=== PATIENT | female | born 1990 | race Caucasian/White ===

== ENCOUNTER 2019-02-01 13:43 | Emergency (ER) | payer MEDICAID, MEDICARE ==
[~2019-02-01] VITALS: Ht 170.2 cm; Wt 79.5 kg
[~2019-02-01 13:43] MED LIST: DEXM25CP PO
[2019-02-01 13:48] VITALS: BP 123/86
[2019-02-01] MEDS ORDERED: ceFAZolin 1000mg inj IR ONE (16:05)
[2019-02-01] MEDS ORDERED: ceFAZolin 1,000 MG/D5W 50ML IVPB Premixed bag IV ONE (16:15)
[2019-02-01 16:39] LABS: BASOPHILS % (AUTO) 0.3 % (0-1); EOSINOPHILS # (AUTO) 0.3 X10'3 (0-0.9); EOSINOPHILS % (AUTO) 4.4 % (0-6); HEMATOCRIT 37.1 % (35.0-45.0); HEMOGLOBIN 12.7 g/dl (12.0-16.0); LYMPHOCYTES # (AUTO) 1.3 X10'3 (1.1-4.8); LYMPHOCYTES % (AUTO) 21.8 % (21-51); MEAN CORPUSCULAR HEMOGLOBIN 30.7 PG (27.0-31.0); MEAN CORPUSCULAR HGB CONC 34.1 g/dL (33.0-36.5); MEAN CORPUSCULAR VOLUME 89.9 FL (78-98); MEAN PLATELET VOLUME 8.2 FL (7.4-10.4); MONOCYTES # (AUTO) 0.6 X10'3 (0-0.9); MONOCYTES % (AUTO) 9.3 % (2-12); NEUTROPHILS # (AUTO) 3.9 X10'3 (1.8-7.7); NEUTROPHILS % (AUTO) 64.2 % (42-75); PLATELET COUNT 286 X10'3 (140-440); RED BLOOD COUNT 4.13 X10'6 (4.20-5.60); RED CELL DISTRIBUTION WIDTH 14.4 % (11.5-14.5); WHITE BLOOD COUNT 6.1 X10'3 (4.5-11.0)
[2019-02-01 17:04] LABS: ALANINE AMINOTRANSFERASE 131 U/L (12-78); ALBUMIN 3.3 G/DL (3.4-5.0); ALBUMIN/GLOBULIN RATIO 0.9 (1.1-1.5); ALKALINE PHOSPHATASE 55 IU/L (46-116); ANION GAP 7 (8-16); ASPARTATE AMINO TRANSFERASE 55 U/L (10-37); BILIRUBIN,TOTAL 0.3 MG/DL (0.1-1.0); BLOOD UREA NITROGEN 5 MG/DL (7-18); BUN/CREATININE RATIO 9.8 (6.6-38.0); CALCIUM 8.6 MG/DL (8.5-10.1); CHLORIDE 106 MMOL/L (99-107); CREATININE 0.51 MG/DL (0.40-0.90); GLUCOSE 100 MG/DL (70-104); POTASSIUM 3.5 MMOL/L (3.5-5.1); SODIUM 137 MMOL/L (135-145); TOTAL CARBON DIOXIDE 23.8 MMOL/L (24-32); TOTAL PROTEIN 6.9 G/DL (6.4-8.2); eGFR > 90 ML/MIN
--- NOTE | 2019-02-01 17:15 | NUR ---
dr barnes at bedside
[2019-02-01] MEDS ORDERED: CEPH-572 PO (17:38)
[2019-02-01] MEDS ORDERED: LIDOcaine 1% w/epiNEPHrine 1:200,000 30ml vial ONE (17:45)
[2019-02-03] MEDS ORDERED: PRED20TA PO (10:23)
== END 2019-02-01 18:32 | disposition home or self-care (01) ==
LOC: ER 13:43
DX: S69.82XA Other specified injuries of left wrist, hand and finger(s), initial encounter (principal); F15.90 Other stimulant use, unspecified, uncomplicated; Z79.899 Other long term (current) drug therapy; X58.XXXA Exposure to other specified factors, initial encounter; Y93.89 Activity, other specified; Y92.89 Other specified places as the place of occurrence of the external cause; Y99.9 Unspecified external cause status
CPT/HCPCS: 36415; 64450; 73130; 80053; 85025; 96365; 99284; J0690; 99285; J3490

== ENCOUNTER 2021-02-04 06:51 | Inpatient (IN) | payer MEDICAID, OTHER, SELFPAY ==
[2021-02-04] VITALS (21 sets, daily range): BP systolic 88–119; BP diastolic 55–76
[~2021-02-04] VITALS: Ht 170.2 cm; Wt 63.6 kg
[2021-02-04] MEDS ORDERED: TETanus/Pertussis (Acell)/Diphther VAC/PF (Tdap-Adult) 0.5ml syringe IMVAC ONE (07:00)
[2021-02-04] MEDS ORDERED: LIDOcaine 1% W/epiNEPHrine 1:200,000 10ml vial IJ ONE (07:00)
[2021-02-04] MEDS ORDERED: LORazepam 2 mg/ml vial IV ONE (07:10)
[2021-02-04] MEDS ORDERED: normal saline 1000ML IV soln IVB ONE (07:10)
[2021-02-04 07:50] LABS: BASOPHILS # (AUTO) 0.1 X10'3 (0-0.2); BASOPHILS % (AUTO) 0.4 % (0-1); EOSINOPHILS % (AUTO) 0 % (0-6); HEMATOCRIT 32.4 % (35.0-45.0); HEMOGLOBIN 10.6 g/dl (12.0-16.0); LYMPHOCYTES # (AUTO) 1.1 X10'3 (1.1-4.8); MEAN CORPUSCULAR HEMOGLOBIN 28.9 PG (27.0-31.0); MEAN CORPUSCULAR HGB CONC 32.6 g/dL (33.0-36.5); MEAN CORPUSCULAR VOLUME 88.7 FL (78-98); MEAN PLATELET VOLUME 8.5 FL (7.4-10.4); MONOCYTES # (AUTO) 1.1 X10'3 (0-0.9); MONOCYTES % (AUTO) 5.1 % (2-12); NEUTROPHILS # (AUTO) 19.2 X10'3 (1.8-7.7); NEUTROPHILS % (AUTO) 89.5 % (42-75); PLATELET COUNT 333 X10'3 (140-440); RED BLOOD COUNT 3.65 X10'6 (4.20-5.60); RED CELL DISTRIBUTION WIDTH 14.7 % (11.5-14.5); WHITE BLOOD COUNT 21.5 X10'3 (4.5-11.0)
[2021-02-04] MEDS ORDERED: ceFAZolin 1GM/D5W- ADD-VANTAGE 50 ML IV ONE (08:05)
[2021-02-04] MEDS ORDERED: ondansetron/PF 4mg/2ml inj IV PRN ×2 (08:35→12:05)
[2021-02-04] MEDS ORDERED: acetaminophen 325mg tablet PO PRN (08:35)
[2021-02-04] MEDS ORDERED: magnesium 4gm in 100ml NS 100 ML IV PRN (08:35)
[2021-02-04] MEDS ORDERED: ipratropium/albuterol 3ml nebule NEB PRN (08:35)
[2021-02-04] MEDS ORDERED: potassium Cl 20 mEq SR tablet PO PRN (08:35)
[2021-02-04] MEDS ORDERED: magnesium 2GM in 50ml NS 50 ML IV PRN (08:35)
[2021-02-04] MEDS ORDERED: morphine 2 MG/ML inj. syringe IV PRN ×2 (08:35→12:05)
[2021-02-04] MEDS ORDERED: potassium Cl 40MEQ/1/2NS 520ml 520 ML IV PRN ×2 (08:35)
[2021-02-04] MEDS ORDERED: mag hydrox/Alum hydrox/simeth 30ml oral suspension PO PRN (08:35)
[2021-02-04] MEDS ORDERED: albuterol 2.5 MG/3 ML nebule NEB PRN (08:35)
[2021-02-04] MEDS ORDERED: magnesium hydroxide 30ml (MOM) UD suspension PO PRN (08:35)
--- NOTE | 2021-02-04 08:43 | NUR ---
clothes were cut off and hospital gown on
[2021-02-04 09:22] LABS: ALANINE AMINOTRANSFERASE 118 U/L (12-78); ALBUMIN 3.3 G/DL (3.4-5.0); ALBUMIN/GLOBULIN RATIO 0.8 (1.1-1.5); ALKALINE PHOSPHATASE 76 IU/L (46-116); ANION GAP 9 (8-16); ASPARTATE AMINO TRANSFERASE 58 U/L (10-37); BILIRUBIN,TOTAL 0.3 MG/DL (0.1-1.0); BLOOD UREA NITROGEN 11 MG/DL (7-18); BUN/CREATININE RATIO 16.9 (6.6-38.0); CALCIUM 8.4 MG/DL (8.5-10.1); CHLORIDE 108 MMOL/L (99-107); CREATININE 0.65 MG/DL (0.40-0.90); GLUCOSE 95 MG/DL (70-104); POTASSIUM 3.6 MMOL/L (3.5-5.1); SODIUM 142 MMOL/L (135-145); TOTAL CARBON DIOXIDE 25.1 MMOL/L (24-32); TOTAL PROTEIN 7.3 G/DL (6.4-8.2); eGFR > 90 ML/MIN
[2021-02-04 09:23] LABS: CREATINE KINASE 378 U/L (26-192)
--- NOTE | 2021-02-04 09:41 | NUR ---
relieving RN for break, covid swab done, pt has been released from police custody, they would be informed when pt is going to be released from the hospital
[2021-02-04] MEDS: normal saline 1000ml 1,000 ML IV SCH ×2 (11:23→16:39)
[2021-02-04] MEDS: morphine 2 MG/ML inj. syringe IV PRN ×2 (11:44→21:00)
[2021-02-04] MEDS ORDERED: sevoflurane 250ml liquid IH ONE (12:02)
[2021-02-04] MEDS ORDERED: proCHLORperazine 10 MG/2 ml inj IV PRN (12:05)
[2021-02-04] MEDS ORDERED: meperidine/PF 25mg/ml syringe IV PRN ×3 (12:05)
[2021-02-04] MEDS ORDERED: morphine 4 MG/ML inj SYRINge IV PRN (12:05)
[2021-02-04] MEDS ORDERED: ringers solution, lacted 1,000 ML IV SCH (12:05)
[2021-02-04] MEDS ORDERED: cloNIDine hcl/PF 100mcg/ml inj ONE (12:07)
[2021-02-04] MEDS ORDERED: fentaNYL/PF 50MCG/1 ML 2ML syringe ONE (12:09)
[2021-02-04] MEDS ORDERED: ROPIVAcaine 0.5% (5mg/ml) 30ml vial ONE (12:42)
[2021-02-04] MEDS ORDERED: vancomycin 1,000mg inj ONE (12:42)
[2021-02-04] MEDS ORDERED: propofol inj 20 ML IV ONE (12:42)
[2021-02-04] MEDS ORDERED: ceFAZolin 1000mg inj ONE ×2 (13:45)
--- NOTE | 2021-02-04 14:02 | NUR ---
Received from OR via , accompanied by Anesthesiologist DR BANKS and report given by Anesthesiolgist. PTPRESENT WITH 18G LEFT FOREARM, DRESSING ON RIGHT ARM CLEAN DRY AND INTACT. VSS. Addendum: 02/04/21 at 1427 by Cata Henning RN, RN Amended: Links added.
--- NOTE | 2021-02-04 15:50 | NUR ---
PATIENT HAS MET ALL CRITERIA FOR TRANSFER TO THE SURGICAL/GENESIS/PCU/ORTHO/ICU FLOOR. VSS. DRESSINGS INTACT. BED LOW, CALL LIGHT PRESENT AND 2 RAILS UP. DARRYL FLORENTINO PRESENT TO ACCEPT CARE OF PATIENT AND REPORT HAS BEEN CALLED. ALL QUESTIONS ANSWERED TO ACCEPTING RN. Addendum: 02/04/21 at 1551 by Cata Abbott - DARRYL ANDREWS Amended: Links added.
[2021-02-04] MEDS: piperacillin/tazo 4.5gm/100ml 100 ML IV SCH (16:00)
[2021-02-04] MEDS: clindamycin 600mg/D5W 50ml 50 ML IV SCH ×2 (16:50→20:59)
--- NOTE | 2021-02-04 18:45 | NUR ---
Patient in room ORTHO 4015. I have received report from Elie ANDREWS and had the opportunity to ask questions and assume patient care.
[2021-02-04] MEDS: K and/or MAG REPLACEMENT MC SCH (20:00)
--- NOTE | 2021-02-04 20:48 | NUR ---
Pt scheduled dose of Zosyn at 1600 was not given by previous RN. Pt. has another antibiotic due now and is due to receive next dose at 0000.
[2021-02-04] MEDS: lactobacillus rhamnosus 10,000 MMU CELLS/CAPSULE PO SCH (20:59)
--- NOTE | 2021-02-04 23:10 | NUR ---
Pt is very restless, getting up out of bed without assistance and get tangled in her IV line and SCD's tubing. Pt was oriented to the call light several times and refuses to use it. Bed alarm is on and working. Nonskid socks on, will continue to frequently round on pt.
[2021-02-04] MEDS: LORazepam 2 mg/ml vial IV PRN (23:43)
[2021-02-05] MEDS: piperacillin/tazo 4.5gm/100ml 100 ML IV SCH (00:08)
[2021-02-05 00:13] VITALS: BP 97/64
[2021-02-05] MEDS: clindamycin 600mg/D5W 50ml 50 ML IV SCH ×4 (02:55→21:05)
[2021-02-05] MEDS: normal saline 1000ml 1,000 ML IV SCH ×2 (04:35→07:59)
[2021-02-05] MEDS: LORazepam 2 mg/ml vial IV PRN ×2 (05:02→13:28)
[2021-02-05 06:05] LABS: BASOPHILS % (AUTO) 0.3 % (0-1); EOSINOPHILS # (AUTO) 0.1 X10'3 (0-0.9); EOSINOPHILS % (AUTO) 1.3 % (0-6); HEMATOCRIT 30.3 % (35.0-45.0); HEMOGLOBIN 10.1 g/dl (12.0-16.0); LYMPHOCYTES # (AUTO) 1.5 X10'3 (1.1-4.8); LYMPHOCYTES % (AUTO) 18.3 % (21-51); MEAN CORPUSCULAR HEMOGLOBIN 29.7 PG (27.0-31.0); MEAN CORPUSCULAR HGB CONC 33.3 g/dL (33.0-36.5); MEAN CORPUSCULAR VOLUME 89.1 FL (78-98); MEAN PLATELET VOLUME 8.2 FL (7.4-10.4); MONOCYTES # (AUTO) 0.8 X10'3 (0-0.9); MONOCYTES % (AUTO) 10.3 % (2-12); NEUTROPHILS # (AUTO) 5.8 X10'3 (1.8-7.7); NEUTROPHILS % (AUTO) 69.8 % (42-75); PLATELET COUNT 291 X10'3 (140-440); WHITE BLOOD COUNT 8.2 X10'3 (4.5-11.0)
[2021-02-05 06:22] LABS: ALANINE AMINOTRANSFERASE 97 U/L (12-78); ALBUMIN 2.5 G/DL (3.4-5.0); ALBUMIN/GLOBULIN RATIO 0.7 (1.1-1.5); ALKALINE PHOSPHATASE 55 IU/L (46-116); AMYLASE 31 U/L (25-115); ANION GAP 7 (8-16); ASPARTATE AMINO TRANSFERASE 64 U/L (10-37); BILIRUBIN,TOTAL 0.5 MG/DL (0.1-1.0); BLOOD UREA NITROGEN 7 MG/DL (7-18); CALCIUM 8.1 MG/DL (8.5-10.1); CHLORIDE 106 MMOL/L (99-107); CREATININE 0.54 MG/DL (0.40-0.90); GLUCOSE 109 MG/DL (70-104); LIPASE < 50 U/L (73-393); MAGNESIUM 2.3 MG/DL (1.5-2.4); PHOSPHORUS 3.1 MG/DL (2.3-4.5); POTASSIUM 3.4 MMOL/L (3.5-5.1); SODIUM 138 MMOL/L (135-145); TOTAL CARBON DIOXIDE 25.4 MMOL/L (24-32); eGFR > 90 ML/MIN
--- NOTE | 2021-02-05 06:29 | NUR ---
Patient in room ORTHO 4015. I have received report from WHITNEY ANDREWS and had the opportunity to ask questions and assume patient care.
--- NOTE | 2021-02-05 06:38 | NUR ---
Problems reprioritized. Patient report given, questions answered & plan of care reviewed with Marizol ANDREWS.
[2021-02-05 07:00] VITALS: BP 106/61
[2021-02-05] MEDS: potassium Cl 20 mEq SR tablet PO PRN ×2 (07:52→17:38)
[2021-02-05] MEDS: lactobacillus rhamnosus 10,000 MMU CELLS/CAPSULE PO SCH ×2 (07:52→21:05)
[2021-02-05] MEDS: multivitamins, therapeutics tablet PO SCH (07:52)
[2021-02-05] MEDS: folic acid 1mg tablet PO SCH (07:52)
[2021-02-05] MEDS: nicotine 21mg patch - 24 hr TD SCH (07:53)
[2021-02-05] MEDS: thiamine 100mg tablet PO SCH (07:53)
[2021-02-05] MEDS: K and/or MAG REPLACEMENT MC SCH ×2 (08:00→20:58)
[2021-02-05 10:27] VITALS: BP 117/74
--- NOTE | 2021-02-05 13:37 | NUR ---
patient very impulsive with getting out of bed , food all through bed and floor. Linen changed patient medicated with Ativan. will continue to monitor.
[2021-02-05 15:00] VITALS: BP 110/71
--- NOTE | 2021-02-05 15:00 | NUR ---
NOT ABLE TO FULLY COMPLETE ADMISSIONS INTERVENTIONS, PT STILL SEDATED FROM SURGERY. OBTAIN INFORMATION BY EMERGENCY ROOM MEDICAL REPORT
[2021-02-05] MEDS: morphine 2 MG/ML inj. syringe IV PRN (17:41)
[2021-02-05 18:00] VITALS: BP 117/73
--- NOTE | 2021-02-05 18:26 | NUR ---
patient had BM today up to BR x1. morphine given at this time for pain 10/10 in right elbow. patient mostly sleeping , waking up to eat 100% of each meal.Report given to cecelia ANDREWS
--- NOTE | 2021-02-05 18:40 | NUR ---
Patient in room ORTHO 4015. I have received report from Marizol ANDREWS and had the opportunity to ask questions and assume patient care.
[2021-02-05 22:00] VITALS: BP 120/73
[2021-02-06] MEDS: potassium Cl 20 mEq SR tablet PO PRN (00:40)
[2021-02-06] MEDS: clindamycin 600mg/D5W 50ml 50 ML IV SCH ×2 (02:29→07:31)
[2021-02-06 06:00] VITALS: BP 128/77
[2021-02-06 06:05] LABS: BASOPHILS % (AUTO) 0.4 % (0-1); EOSINOPHILS # (AUTO) 0.2 X10'3 (0-0.9); EOSINOPHILS % (AUTO) 3.7 % (0-6); HEMATOCRIT 34.3 % (35.0-45.0); HEMOGLOBIN 11.4 g/dl (12.0-16.0); LYMPHOCYTES # (AUTO) 1.3 X10'3 (1.1-4.8); LYMPHOCYTES % (AUTO) 18.9 % (21-51); MEAN CORPUSCULAR HEMOGLOBIN 29.4 PG (27.0-31.0); MEAN CORPUSCULAR HGB CONC 33.1 g/dL (33.0-36.5); MEAN CORPUSCULAR VOLUME 88.7 FL (78-98); MONOCYTES # (AUTO) 0.6 X10'3 (0-0.9); NEUTROPHILS # (AUTO) 4.6 X10'3 (1.8-7.7); PLATELET COUNT 334 X10'3 (140-440); RED BLOOD COUNT 3.87 X10'6 (4.20-5.60); RED CELL DISTRIBUTION WIDTH 14.8 % (11.5-14.5); WHITE BLOOD COUNT 6.8 X10'3 (4.5-11.0)
--- NOTE | 2021-02-06 06:10 | NUR ---
Problems reprioritized. Patient report given, questions answered & plan of care reviewed with Akanksha ANDREWS.
[2021-02-06 06:27] LABS: ALANINE AMINOTRANSFERASE 116 U/L (12-78); ALBUMIN 2.5 G/DL (3.4-5.0); ALBUMIN/GLOBULIN RATIO 0.6 (1.1-1.5); ALKALINE PHOSPHATASE 57 IU/L (46-116); AMYLASE 37 U/L (25-115); ANION GAP 7 (8-16); ASPARTATE AMINO TRANSFERASE 78 U/L (10-37); BILIRUBIN,TOTAL 0.3 MG/DL (0.1-1.0); BLOOD UREA NITROGEN 5 MG/DL (7-18); BUN/CREATININE RATIO 10.6 (6.6-38.0); CALCIUM 8.2 MG/DL (8.5-10.1); CHLORIDE 105 MMOL/L (99-107); CREATININE 0.47 MG/DL (0.40-0.90); GLUCOSE 109 MG/DL (70-104); LIPASE 59 U/L (73-393); MAGNESIUM 2.4 MG/DL (1.5-2.4); PHOSPHORUS 3.2 MG/DL (2.3-4.5); POTASSIUM 4.2 MMOL/L (3.5-5.1); SODIUM 138 MMOL/L (135-145); TOTAL PROTEIN 6.4 G/DL (6.4-8.2); eGFR > 90 ML/MIN
[2021-02-06] MEDS: multivitamins, therapeutics tablet PO SCH (07:30)
[2021-02-06] MEDS: thiamine 100mg tablet PO SCH (07:30)
[2021-02-06] MEDS: lactobacillus rhamnosus 10,000 MMU CELLS/CAPSULE PO SCH (07:30)
[2021-02-06] MEDS: folic acid 1mg tablet PO SCH (07:30)
[2021-02-06] MEDS: nicotine 21mg patch - 24 hr TD SCH (07:31)
[2021-02-06] MEDS: K and/or MAG REPLACEMENT MC SCH (08:00)
[2021-02-06] MEDS ORDERED: LORazepam 2 mg/ml vial IV PRN (08:35)
[2021-02-06] MEDS ORDERED: LORazepam 1 MG tablet PO PRN (08:35)
[2021-02-06 10:00] VITALS: BP 113/71
--- NOTE | 2021-02-06 10:10 | NUR ---
RIGHT ARM HAS A CAST FROM SHOULDER TO HAND, UNABLE TO ASSESS PULSE, HAND HAS GOOD COLORING, IS WARM, AND AND ELECTRONIC SCALE TESTER LESS THAN 6 SEC Addendum: 02/06/21 at 1015 by Karla Hercules RN Amended: Links added.
[2021-02-06] MEDS ORDERED: HYDR-3965 PO (10:55)
[2021-02-06] MEDS ORDERED: AMOX-580 PO (10:55)
[2021-02-06] MEDS ORDERED: clindamycin 150mg capsule PO SCH (14:00)
--- NOTE | 2021-02-06 16:25 | NUR ---
PATIENT STABLE AND APPROPRIATE FOR DISCHARGE, TELE REMOVED, IV TAKEN OUT, EDUCATION GIVEN, SCRIPT FOR MEDS GIVEN TO PATIENT, BELONGINGS RECITE FROM [employer] GIVEN TO PATIENT,PATIENT GIVEN CLOTHES AND SHOES, PATIENT CALLED AN UBER, PATIENT TAKEN TO LOBBY BY WHEELCHAIR TO AN AWAITING UBER WHERE UBER WILL TAKE PATIENT HOME
[2021-02-08] MEDS ORDERED: LORazepam 2 mg/ml vial IV PRN (08:35)
[2021-02-08] MEDS ORDERED: LORazepam 1 MG tablet PO PRN (08:35)
== END 2021-02-06 16:30 | disposition home or self-care (01) | DRG 510 ==
LOC: ER 06:52 → ED HOLD 08:32 → ORTHO 4S 16:00
PROVIDERS: ADMIT Family Medicine; ATTEND Family Medicine
PROC: 0PSK04Z Reposition Right Ulna with Internal Fixation Device, Open Approach (ICD-10-PCS; principal; 2021-02-04 12:02)
DX: S52.021B Displaced fracture of olecranon process without intraarticular extension of right ulna, initial encounter for open fracture type I or II (principal); G92 Toxic encephalopathy; F15.129 Other stimulant abuse with intoxication, unspecified; J45.909 Unspecified asthma, uncomplicated; S41.111A Laceration without foreign body of right upper arm, initial encounter; F17.210 Nicotine dependence, cigarettes, uncomplicated; S50.12XA Contusion of left forearm, initial encounter; V43.52XA Car driver injured in collision with other type car in traffic accident, initial encounter; Z59.0 Homelessness; Z79.899 Other long term (current) drug therapy; Y92.488 Other paved roadways as the place of occurrence of the external cause; Y93.89 Activity, other specified; Y99.8 Other external cause status
CPT/HCPCS: 96374; 99285; Z7506; Z7508; 36415; 71045; 71046; 73070; 76000; 80053; 82150; 82550; 82948; 83690; 83735; 84100; 85025; 85610; 87081; 87635; 90471; 90715; 93005; 94760; 97116; 97161; 97530; A4618; A6223; A6449; A7000; C1713; C9803; G0378; J0690; J0735; J2060; J2270; J2543; J2704; J2795; J3010; J3370; J3490; J7030; J7120

== ENCOUNTER 2021-02-09 21:03 | Emergency (ER) | payer SELFPAY ==
[~2021-02-09] VITALS: Ht 177.8 cm; Wt 71.0 kg
[~2021-02-09 21:03] MED LIST changes: +AMOX-580 PO; +HYDR-3965 PO
[2021-02-09 21:22] VITALS: BP 109/78
--- NOTE | 2021-02-10 00:20 | NUR ---
pt to room, assumed care
[2021-02-10] MEDS ORDERED: HYDROcodone/acetaminophen 5mg/325mg tablet PO ONE (00:25)
== END 2021-02-10 00:46 | disposition home or self-care (01) ==
LOC: ER 21:03
DX: Z02.89 Encounter for other administrative examinations (principal); M79.601 Pain in right arm; R20.0 Anesthesia of skin; F17.200 Nicotine dependence, unspecified, uncomplicated; F15.90 Other stimulant use, unspecified, uncomplicated; Z72.89 Other problems related to lifestyle; Z59.0 Homelessness; Z79.2 Long term (current) use of antibiotics; Z79.899 Other long term (current) drug therapy
CPT/HCPCS: 99283

== ENCOUNTER 2021-02-25 19:29 | Emergency (ER) | payer MEDICAID ==
[~2021-02-25] VITALS: Ht 170.2 cm; Wt 65.9 kg
[2021-02-25 19:44] VITALS: BP 112/78
[2021-02-25] MEDS ORDERED: bacitracin 15gm ointment TP ONE (23:20)
== END 2021-02-26 00:30 | disposition home or self-care (01) ==
LOC: ER 19:29
DX: S52.021D Displaced fracture of olecranon process without intraarticular extension of right ulna, subsequent encounter for closed fracture with routine healing (principal); F15.90 Other stimulant use, unspecified, uncomplicated; Z48.02 Encounter for removal of sutures; Z72.89 Other problems related to lifestyle; Z56.0 Unemployment, unspecified; Z59.0 Homelessness; Z79.2 Long term (current) use of antibiotics; Z79.899 Other long term (current) drug therapy; W54.0XXD Bitten by dog, subsequent encounter
CPT/HCPCS: 29105; 99281; 99282; 99283

== ENCOUNTER 2021-03-02 12:17 | Emergency (ER) | payer MEDICAID ==
[~2021-03-02] VITALS: Ht 175.3 cm; Wt 70.5 kg
[2021-03-02 13:20] VITALS: BP 112/63
[2021-03-02] MEDS ORDERED: HYDR-3965 PO (13:46)
== END 2021-03-02 13:59 | disposition home or self-care (01) ==
LOC: ER 12:18
DX: M79.601 Pain in right arm (principal); Z76.0 Encounter for issue of repeat prescription; F15.90 Other stimulant use, unspecified, uncomplicated; Z56.0 Unemployment, unspecified; Z59.0 Homelessness; Z72.89 Other problems related to lifestyle; Z79.899 Other long term (current) drug therapy
CPT/HCPCS: 99281

== ENCOUNTER 2021-04-13 09:14 | Emergency (ER) | payer MEDICAID ==
[~2021-04-13] VITALS: Ht 177.8 cm; Wt 60.0 kg
[~2021-04-13 09:14] MED LIST changes: -AMOX-580 PO; -HYDR-3965 PO
[2021-04-13 09:22] VITALS: BP 142/106
[2021-04-13] MEDS ORDERED: bacitracin 15gm ointment TP ONE (09:35)
== END 2021-04-13 11:20 ==
LOC: EDSEX → ER 09:15 → EDSEX 09:15 → ER 11:20
DX: Z02.89 Encounter for other administrative examinations (principal); F15.90 Other stimulant use, unspecified, uncomplicated; Z56.0 Unemployment, unspecified; Z59.0 Homelessness
CPT/HCPCS: 99285

== ENCOUNTER 2021-06-08 19:23 | Emergency (ER) | payer MEDICAID, OTHER ==
[~2021-06-08] VITALS: Ht 177.8 cm; Wt 77.2 kg
[~2021-06-08 19:23] MED LIST changes: +CEPH-585 PO
[2021-06-08] MEDS ORDERED: cefepime 2g/NS 100ml ADVANTAGE 100 ML IV STA (19:26)
[2021-06-08] MEDS ORDERED: vancomycin/NS 1 GM ADD-VANTAGE 250 ML IV ONE (19:30)
[2021-06-08] MEDS ORDERED: normal saline 1000ML IV soln IV ONE (19:30)
[2021-06-08 20:06] LABS: BASOPHILS % (AUTO) 0.3 % (0-1); EOSINOPHILS # (AUTO) 0.1 X10'3 (0-0.9); EOSINOPHILS % (AUTO) 1.2 % (0-6); HEMATOCRIT 33.8 % (35.0-45.0); HEMOGLOBIN 11.3 g/dl (12.0-16.0); LYMPHOCYTES # (AUTO) 1.4 X10'3 (1.1-4.8); LYMPHOCYTES % (AUTO) 15.8 % (21-51); MEAN CORPUSCULAR HGB CONC 33.5 g/dL (33.0-36.5); MEAN CORPUSCULAR VOLUME 83.6 FL (78-98); MEAN PLATELET VOLUME 7.7 FL (7.4-10.4); MONOCYTES # (AUTO) 0.7 X10'3 (0-0.9); MONOCYTES % (AUTO) 7.6 % (2-12); NEUTROPHILS # (AUTO) 6.7 X10'3 (1.8-7.7); NEUTROPHILS % (AUTO) 75.1 % (42-75); PLATELET COUNT 333 X10'3 (140-440); RED BLOOD COUNT 4.05 X10'6 (4.20-5.60); RED CELL DISTRIBUTION WIDTH 17.8 % (11.5-14.5)
[2021-06-08 20:15] LABS: ALANINE AMINOTRANSFERASE 77 U/L (12-78); ALBUMIN 3.9 G/DL (3.4-5.0); ALBUMIN/GLOBULIN RATIO 0.9 (1.1-1.5); ALKALINE PHOSPHATASE 89 IU/L (46-116); ANION GAP 14 (8-16); ASPARTATE AMINO TRANSFERASE 89 U/L (10-37); BILIRUBIN,TOTAL 0.9 MG/DL (0.1-1.0); BLOOD UREA NITROGEN 19 MG/DL (7-18); BUN/CREATININE RATIO 26.4 (6.6-38.0); C-REACTIVE PROTEIN 15.44 MG/DL (0.0-0.5); CALCIUM 9.5 MG/DL (8.5-10.1); CHLORIDE 102 MMOL/L (99-107); CREATININE 0.72 MG/DL (0.40-0.90); ETHANOL < 0.010 GM/DL (0.0-0.010); GLUCOSE 98 MG/DL (70-104); POTASSIUM 3.4 MMOL/L (3.5-5.1); SODIUM 140 MMOL/L (135-145); TOTAL CARBON DIOXIDE 23.8 MMOL/L (24-32); TOTAL PROTEIN 8.4 G/DL (6.4-8.2); eGFR > 90 ML/MIN
[2021-06-08] MEDS ORDERED: SULF1TAB49 PO (20:51)
--- NOTE | 2021-06-08 21:00 | NUR ---
ASSUMED CARE OF PATIENT. PT TAKEN FROM ROOM 17 TO GRAY BED 7 . CCUA SPECIMAN SENT TO LAB IV INFUSING TO THE LEFT AC PATENT WITHOUT INCIDENT . NS 1 0F 3 LITERS INFUSING . PT RIGHT ELBOW OPEN TO AIR RED AT POST OP SURGICAL SITE . AWARE
[2021-06-08 21:20] LABS: URINE HCG NEGATIVE (NEG)
[2021-06-08 21:30] LABS: URINE AMPHETAMINE SCREEN POSITIVE (Neg); URINE BARBITUATE SCREEN NEGATIVE (Neg); URINE BENZODIAZEPINES SCREEN NEGATIVE (Neg); URINE CANNABINOID SCREEN NEGATIVE (Neg); URINE COCAINE SCREEN NEGATIVE (Neg); URINE METHADONE SCREEN NEGATIVE (Neg); URINE OPIATE SCREEN NEGATIVE (Neg); URINE PHENCYCLIDINE SCREEN NEGATIVE (Neg)
--- NOTE | 2021-06-08 21:30 | NUR ---
IV ABX CEFEPIME COMPLETE . 2 OF 3 COMPLETED . PT UP OUT OF BED TO BATH ROOM . STOOLED AND IS WASHING IN THE SINK WITH STOOL SOAP . PT INSTRUCTED TO WASH WITH SOAP . PT CLEANED UP WITH BODY WIPES AFTER SHE HAS INDEPENDENTLY CLEANED WITH SOAP AND WATER . PT ALSO ON HER MENSUS . PT BLEED THROUGH HER CLOTHES PT PUT IN ZHANG PANTIES AND GIVEN ZHANG PADS . PT AMBULATED TO BATHROOM STEADY GAIT
[2021-06-08 21:56] LABS: CLARITY,URINE SLIGHTLY CLOUDY (Clear); COLOR,URINE YELLOW (Yellow); UA COLLECTION TYPE CLN CATCH MIDSTREAM
[2021-06-08 21:57] LABS: GLUCOSE, URINE NEGATIVE (Neg); KETONES,URINE TRACE mg/dl (Neg); NITRITES, URINE NEGATIVE (Neg); OCCULT BLOOD,URINE SMALL (Neg); PROTEIN,URINE TRACE mg/dl (Neg)
[2021-06-08 21:58] LABS: LEUKOCYTE ESTERASE ,URINE NEGATIVE (Neg); UROBILINOGEN,URINE 0.2 E.U/dL (0.2-1.0)
[2021-06-08 22:00] LABS: MUCUS STRANDS FEW /LPF (Neg); SQUAMOUS EPITHELIAL CELL,UR FEW /LPF (FEW)
[2021-06-08 22:02] LABS: BACTERIA,URINE FEW /HPF (Neg)
[2021-06-08 22:03] LABS: TRANSITIONAL EPI CELLS,URINE FEW /HPF; WBC CLUMPS,URINE FEW /HPF (NEGATIVE)
[2021-06-09 00:08] VITALS: BP 138/68
== END 2021-06-08 23:50 | disposition home or self-care (01) ==
LOC: ER 19:23
DX: L03.113 Cellulitis of right upper limb (principal); R45.1 Restlessness and agitation; F15.129 Other stimulant abuse with intoxication, unspecified; Z72.89 Other problems related to lifestyle; Z56.0 Unemployment, unspecified; Z59.00 Homelessness unspecified; Z79.2 Long term (current) use of antibiotics; Z79.899 Other long term (current) drug therapy
CPT/HCPCS: 36415; 71045; 73080; 80053; 80305; 80320; 81001; 81025; 83605; 84145; 85025; 85651; 86140; 87040; 87088; 93005; 96361; 96365; 96375; 99285; J0692; J3370; J7030

== ENCOUNTER 2021-07-11 13:39 | Emergency (ER) | payer OTHER ==
[~2021-07-11] VITALS: Ht 172.7 cm; Wt 68.2 kg
[2021-07-11] MEDS ORDERED: SULF1TAB49 PO (16:09)
[2021-07-11] MEDS ORDERED: CEPH-585 PO (16:09)
[2021-07-11] MEDS ORDERED: CefTRIAXone 2gm/D5W 50ml BAG 50 ML IV ONE (16:10)
[2021-07-11] MEDS ORDERED: vancomycin/NS 1 GM ADD-VANTAGE 250 ML IV ONE (16:10)
[2021-07-11] MEDS ORDERED: iohexol 300mg/ml 100ml inj. ONE (16:21)
[2021-07-11 16:30] VITALS: BP 112/78
== END 2021-07-11 19:44 | disposition left against medical advice (07) ==
LOC: EDSEX → ER 13:40
DX: L03.113 Cellulitis of right upper limb (principal); F15.90 Other stimulant use, unspecified, uncomplicated; Z79.2 Long term (current) use of antibiotics; Z88.0 Allergy status to penicillin; Z72.89 Other problems related to lifestyle; Z87.81 Personal history of (healed) traumatic fracture
CPT/HCPCS: 87070; 87077; 87186; 96365; 96366; 96368; 99284; J0696; J3370; Q9967

== ENCOUNTER 2021-07-15 08:31 | Emergency (ER) | payer OTHER ==
[~2021-07-15] VITALS: Ht 167.6 cm; Wt 60.0 kg
[~2021-07-15 08:31] MED LIST changes: +SULF1TAB49 PO
[2021-07-15] MEDS ORDERED: SULF1TAB45 PO (08:45)
[2021-07-15] MEDS ORDERED: CEPH250T PO (08:45)
[2021-07-15 08:50] VITALS: BP 121/80
== END 2021-07-16 06:54 | disposition home or self-care (01) ==
LOC: EDSEX 08:31 → ER 08:31
DX: Z00.8 Encounter for other general examination (principal); M70.22 Olecranon bursitis, left elbow; F15.90 Other stimulant use, unspecified, uncomplicated; Z72.89 Other problems related to lifestyle; Z59.00 Homelessness unspecified; Z56.0 Unemployment, unspecified; Z79.2 Long term (current) use of antibiotics; Z79.899 Other long term (current) drug therapy
CPT/HCPCS: 99283

== ENCOUNTER 2021-07-19 11:44 | Emergency (ER) | payer SELFPAY ==
[~2021-07-19] VITALS: Ht 177.8 cm; Wt 68.2 kg
[~2021-07-19 11:44] MED LIST changes: +CEPH250T PO; +SULF1TAB45 PO
[2021-07-19] MEDS ORDERED: LINE600T11 PO (12:05)
[2021-07-19] MEDS ORDERED: linezolid 600mg tablet PO ONE (12:05)
[2021-07-19 12:11] VITALS: BP 121/68
== END 2021-07-19 12:15 | disposition home or self-care (01) ==
LOC: ER 11:45
DX: L03.113 Cellulitis of right upper limb (principal); F15.10 Other stimulant abuse, uncomplicated; Z02.89 Encounter for other administrative examinations; Z87.81 Personal history of (healed) traumatic fracture; Z59.00 Homelessness unspecified; Z56.0 Unemployment, unspecified; Z88.0 Allergy status to penicillin
CPT/HCPCS: 99283